=== PATIENT | male | born 1955 | race African-American/Black ===

== ENCOUNTER 2017-06-18 19:09 | Inpatient (IN) | payer OTHER ==
[~2017-06-18] VITALS: Ht 180.3 cm; Wt 81.2 kg
[2017-06-18 20:23] LABS: microscopic required? NO
[2017-06-18 20:28] LABS: CHLORIDE SERUM 103 mmol/L (98-107); CREATININE SERUM 1.1 mg/dL (0.7-1.3); GFR1 > 60 mL/min; GLUCOSE SERUM 88 mg/dL (74-106); POTASSIUM SERUM 3.6 mmol/L (3.5-5.1); SODIUM SERUM 139 mmol/L (136-145)
[2017-06-18 20:31] LABS: BASOPHIL % 0.3 % (0-2); PLATELET COUNT 156 x10^3mcL (130-400); RED CELL DISTRIBUTION WIDTH 12.4 % (11.5-14.5)
[2017-06-18 20:33] LABS: ALBUMIN 4.2 g/dL (3.4-5.0); ALKALINE PHOSPHATASE 47 U/L (46-116); ALT/SGPT 54 U/L (16-63); AMYLASE 125 U/L (25-115); AST/SGOT 33 U/L (15-37); BILIRUBIN TOTAL 0.27 mg/dL (0.20-1.00); CHOLESTEROL 128 mg/dL (<200); HDL CHOLESTEROL 35 mg/dL (40-60); LIPASE 62 IU/L (73-393); TOTAL PROTEIN, SERUM 8.9 g/dL (6.4-8.2)
[2017-06-18 20:40] LABS: urine erythrocyte NEGATIVE (NEGATIVE)
[2017-06-18 20:49] LABS: AMPHETAMINE QUAL UR NONE DETECTED (NEG <=1000)
[2017-06-18 22:10] LABS: CHOLESTEROL/HDL RATIO 3.8
[2017-06-18 22:36] VITALS: BP 185/88
[2017-06-18] MEDS ORDERED: TEGRETOL200 MG (23:26)
[2017-06-18] MEDS ORDERED: AMLODIPINE BES2.5 M1 (23:26)
[2017-06-18] MEDS ORDERED: LIPI10 (23:26)
[2017-06-18] MEDS ORDERED: ISOSORBIDE MONO30 MG (23:27)
[2017-06-18] MEDS ORDERED: CARDURA4 MG (23:27)
[2017-06-18] MEDS ORDERED: PRILOSEC OTC20 M1 (23:27)
[2017-06-18] MEDS ORDERED: LISINOPRIL20 MG (23:27)
[2017-06-18] MEDS ORDERED: METFORMIN HYDR500 M1 (23:27)
[2017-06-18] MEDS ORDERED: KEN025C (23:28)
[2017-06-18] MEDS ORDERED: ST. JOSEPH ASPI81 MG (23:28)
[2017-06-18] MEDS ORDERED: NITROSTAT0.4 MG (23:29)
[2017-06-19 00:49] VITALS: BP 118/51
[2017-06-19 05:48] VITALS: BP 131/68
[2017-06-19 06:36] LABS: CALCIUM 8.5 mg/dL (8.5-10.1); CARBON DIOXIDE 29.3 mmol/L (21-32); CREATININE SERUM 1.5 mg/dL (0.7-1.3); POTASSIUM SERUM 3.6 mmol/L (3.5-5.1)
[2017-06-19 06:44] LABS: BASOPHIL % 0.3 % (0-2); PLATELET COUNT 146 x10^3mcL (130-400); RED CELL DISTRIBUTION WIDTH 12.4 % (11.5-14.5)
[2017-06-19 09:56] VITALS: BP 144/68
[2017-06-19 16:52] VITALS: BP 158/85
[2017-06-19 17:20] VITALS: BP 158/85
== END 2017-06-19 20:29 | disposition other institution (70) | DRG 313 ==
LOC: ED 19:09 → DU 21:27
PROVIDERS: Emergency Medicine; ADMIT Internal Medicine
DX: R07.89 Other chest pain (principal); I25.110 Atherosclerotic heart disease of native coronary artery with unstable angina pectoris; I10 Essential (primary) hypertension; B18.2 Chronic viral hepatitis C; E11.9 Type 2 diabetes mellitus without complications
CPT/HCPCS: 83880; A9500; J2785; J3490